=== PATIENT | male | born 1950 | race Caucasian/White ===

== ENCOUNTER 2020-10-07 15:58 | Inpatient (IN) | payer BC, MEDICARE ==
[~2020-10-07] VITALS: Ht 172.7 cm; Wt 86.2 kg
[2020-10-07 20:08] LABS: HEMOGLOBIN 16.5 gm/dl (14.0-17.5); RED BLOOD COUNT 5.37 M/UL (4.20-5.50); WHITE BLOOD COUNT 11.7 K/UL (4.5-11.0)
[2020-10-07 20:29] LABS: BUN/CREATININE RATIO 24 (0-10)
[2020-10-07] MEDS ORDERED: NORVASC5 MG PO (22:59)
[2020-10-07] MEDS ORDERED: LOPRESSOR 25 MG25 MG PO (23:00)
[2020-10-08 04:39] LABS: RED BLOOD COUNT 4.99 M/UL (4.20-5.50); WHITE BLOOD COUNT 10.6 K/UL (4.5-11.0)
[2020-10-08 04:40] LABS: HEMOGLOBIN 14.2 gm/dl (14.0-17.5)
[2020-10-08 05:10] LABS: BUN/CREATININE RATIO 25 (0-10)
--- NOTE | 2020-10-09 15:35 | NUR ---
CONTACTED RT REQUESTING AIRVO BE TITRATED TO 45% PER PROVIDER REQUEST.
--- NOTE | 2020-10-10 07:39 | NUR ---
PATIENT HAS BEEN ANXIOUS. CALLED PROVIDER YESTERDAY FOR A ONE TIME DOSE OF ATIVAN 1MG. PATIENT TOLERATED WELL. STATES HE HAD A RESTFUL NIGHT.
[2020-10-11 06:19] LABS: HEMOGLOBIN 15.4 gm/dl (14.0-17.5); RED BLOOD COUNT 5.14 M/UL (4.20-5.50); WHITE BLOOD COUNT 11.9 K/UL (4.5-11.0)
[2020-10-11 06:48] LABS: BUN/CREATININE RATIO 28 (0-10)
[2020-10-13 05:57] LABS: HEMOGLOBIN 15.8 gm/dl (14.0-17.5); RED BLOOD COUNT 5.2 M/UL (4.20-5.50); WHITE BLOOD COUNT 14.1 K/UL (4.5-11.0)
[2020-10-13 06:20] LABS: BUN/CREATININE RATIO 31 (0-10)
[2020-10-14 07:10] LABS: RED BLOOD COUNT 5.26 M/UL (4.20-5.50); WHITE BLOOD COUNT 12.9 K/UL (4.5-11.0)
[2020-10-14 07:28] LABS: BUN/CREATININE RATIO 26 (0-10)
[2020-10-16 03:55] LABS: HEMOGLOBIN 14.7 gm/dl (14.0-17.5); RED BLOOD COUNT 4.96 M/UL (4.20-5.50); WHITE BLOOD COUNT 13.6 K/UL (4.5-11.0)
[2020-10-16 04:25] LABS: BUN/CREATININE RATIO 24 (0-10)
[2020-10-17 02:38] LABS: HEMOGLOBIN 15.7 gm/dl (14.0-17.5); RED BLOOD COUNT 5.19 M/UL (4.20-5.50); WHITE BLOOD COUNT 12.5 K/UL (4.5-11.0)
[2020-10-17 02:59] LABS: BUN/CREATININE RATIO 22 (0-10)
[2020-10-18 07:14] LABS: BUN/CREATININE RATIO 22 (0-10)
[2020-10-18] MEDS ORDERED: TESSALON PERLE100 MG PO (10:42)
[2020-10-18] MEDS ORDERED: VENTOLIN HFA 66.7 GM INH (10:42)
[2020-10-18] MEDS ORDERED: CEFUROXIME500 MG PO (10:42)
[2020-10-18] MEDS ORDERED: ECOTRIN81 MG PO (10:42)
--- NOTE | 2020-10-18 11:17 | NUR ---
PER NURSING, PATIENT SATS ON ROOM AIR TODAY WERE 86% AT REST
--- NOTE | 2020-10-18 14:26 | NUR ---
PATIENT INSTRUCTED AT THIS TIME TO CALL HIS SON TO PICK HIM UP DUE TO DISCHARGE BEING FINALIZED.
== END 2020-10-18 15:11 | disposition home or self-care (01) | DRG 177 ==
LOC: ER1 15:58 → MED SURG 4 21:03 → CDU 21:03 → MED SURG 4 10-08 16:12
PROVIDERS: Internal Medicine; Internal Medicine Infectious Disease; Preventive Medicine Occupational Medicine; ADMIT Internal Medicine
PROC: XW033F6 Introduction of Bamlanivimab Monoclonal Antibody into Peripheral Vein, Percutaneous Approach, New Technology Group 6 (ICD-10-PCS; principal; 2020-10-07)
PROC: 8E0ZXY6 Isolation (ICD-10-PCS; 2020-10-07)
PROC: XW033E5 Introduction of Remdesivir Anti-infective into Peripheral Vein, Percutaneous Approach, New Technology Group 5 (ICD-10-PCS; 2020-10-07)
DX: U07.1 COVID-19 (principal); J12.82 Pneumonia due to coronavirus disease 2019; J96.01 Acute respiratory failure with hypoxia; J15.9 Unspecified bacterial pneumonia; E87.1 Hypo-osmolality and hyponatremia; I10 Essential (primary) hypertension; R00.0 Tachycardia, unspecified; R73.9 Hyperglycemia, unspecified; T38.0X5A Adverse effect of glucocorticoids and synthetic analogues, initial encounter; Z66 Do not resuscitate; F41.9 Anxiety disorder, unspecified; G47.00 Insomnia, unspecified; D72.829 Elevated white blood cell count, unspecified; Z90.49 Acquired absence of other specified parts of digestive tract; Z79.899 Other long term (current) drug therapy
CPT/HCPCS: 36415; 36600; 71045; 80048; 80053; 81001; 82728; 82803; 83690; 83735; 85025; 85027; 85379; 86140; 87070; 87086; 87205; 94660; 94760; 96365; 96366; 96367; 96375; 96376; 99285; J0456; J1100; J1650; J2543; J7030; M0239